=== PATIENT | male | born 1975 | race Caucasian/White ===

== ENCOUNTER 2016-07-10 10:27 | Emergency (ER) | payer BC, OTHER ==
[~2016-07-10] VITALS: Ht 175.3 cm; Wt 90.7 kg
[2016-07-10 10:38] VITALS: TEMP 37; Ht 175.3 cm; Wt 90.7 kg
[2016-07-10 10:41] VITALS: O2SAT 95
[2016-07-10 11:07] LABS: BASO % 0.5 %; BASO ABS # 0.03 K/uL (0-0.2); COMPLETE YES; EOS % 5.5 %; HEMATOCRIT 47.8 % (42-52); IG% 0.5 %; LYMPH % 30.5 %; MEAN CORPUSCULAR HGB CONC 34.9 g/dl (32-36); MEAN PLATELET VOLUME 10.2 fL (7.4-10.4); MONO % 6.4 %; NEUT % 56.6 %; PLATELET COUNT 289 K/uL (130-400); RED BLOOD COUNT 5.56 M/uL (4.7-6.1); WHITE BLOOD COUNT 6.23 K/uL (4.8-10.8)
[2016-07-10] MEDS ORDERED: ASPIRIN 81 MG CHEW ONE (11:10)
[2016-07-10] MEDS ORDERED: ASPIRIN 324 MG CHEW PO STA (11:13)
[2016-07-10 11:15] LABS: URINE APPEARANCE CLOUDY (CLEAR); URINE BILIRUBIN NEG (NEG); URINE COLOR YELLOW; URINE EPITHELIAL CELL AUTO 0-5 /lpf (0-5); URINE NITRITE NEG (NEG); URINE PH 6.5 (4.5-7.5); URINE SPECIFIC GRAVITY 1.007 (1.000-1.030); UROBILINOGEN NEG (NEG)
[2016-07-10 11:16] LABS: BLOOD UREA NITROGEN 15 mg/dl (7-18); BUN/CREATININE RATIO 13.3 (10-20); CALCIUM 8.9 mg/dl (8.5-10.1); CARBON DIOXIDE 30 mmol/L (21-32); CHLORIDE 106 mmol/L (98-107); GLUCOSE 81 mg/dl (70-99); POTASSIUM 4.1 mmol/L (3.5-5.1); SODIUM 141 mmol/L (136-145)
[2016-07-10 11:17] LABS: MANUAL MICROSCOPIC REQUIRED? NO; REVIEW REQ? NO
[2016-07-10 11:26] LABS: CKMB/CK RATIO 0.6 (0-3.0)
--- NOTE | 2016-07-10 11:44 | DIAGNOSTIC IMAGING REPORT ---
TWO VIEW CHEST CLINICAL HISTORY: Left-sided chest pain. FINDINGS: PA and lateral chest radiographs are obtained. No prior studies are available for comparison at the time of dictation. The cardiomediastinal silhouette is unremarkable. The lungs and pleural spaces are clear. There is no pneumothorax. The bony thorax appears intact. IMPRESSION: No active disease in the chest. Electronically signed by: Aydin Ferguson M.D. 07/10/2016 11:43 AM Dictated Date/Time: 07/10/2016 11:42 AM
[2016-07-10 13:05] VITALS: BP 113/74; PULSE 73; O2SAT 99
--- NOTE | 2016-07-13 17:37 | EMERGENCY ROOM VISIT NOTE ---
History First contact with patient: 10:37 Chief Complaint: CHEST PAIN Stated Complaint: CHEST DISCOMFORT, NAUSEA, LIGHTHEADED, SHAKING Nursing Triage Summary: pt c/o chest pain started last night and describes as tightness does not radiate. denies any n/v pt reports feeling sob chest feels like a ball in it last night pain was more sharp 2 weeks ago flew to [place] for a weekend History of Present Illness The patient is a 40 year old white male who presents to the Emergency Room with complaints of chest pain that developed last night. He points to his left anterior chest wall. It is not doing anything active. He states he was sitting on a couch when it first occurred. He describes it as a tightness and sharp. This morning, he was also sitting on the couch and had a second bout of tightness in his chest. He states he also felt an abrupt onset of shortness of breath. It resolved upon arrival at the ED. He currently denies any tightness or heaviness in his chest. He does have a focal area that remains sharp and uncomfortable. It did not radiate to his jaw or his arm. No prior history of similar discomfort. He states his father suddenly 2 months ago. He is not sure if he is anxious about this sudden . Pain is currently 1/10. No fevers, chills, sweats, nausea, vomiting, or abdominal pain. No history of asthma. He denies any calf pain. No recent long trips or air travel. His accompanies him today. Review of Systems REVIEW OF SYSTEM: HEENT: No dizziness, visual problems, hearing loss, or tinnitus. There is no difficulty swallowing and no oral lesions are present. PULMONARY: No cough, shortness of breath, sputum production or hemoptysis. CARDIOVASCULAR: No chest pain, palpitations, shortness of breath or peripheral edema. GASTROINTESTINAL: No diarrhea, constipation, nausea, vomiting, or abdominal pain. GENITOURINARY: No dysuria, frequency, urgency or nocturia. NEUROLOGIC: No weakness, muscle tenderness, epilepsy or history of neurological problems. MUSCULOSKELETAL: No history of joint tenderness/swelling. No history of arthritis or arthralgias. SKIN: No rashes or lesions. PSYCHIATRIC: No history of depression or mental illness. ENDOCRINE: No history of diabetes, thyroid disorders, or abnormal hair growth. Past Medical/Surgical History Previous surgeries: Serena tooth extraction Medical history: History of bronchitis and reflux Family History Father is from coronary thrombus. Also history of skin cancer, kidney stones, osteoarthritis, and GERD Social History Smoking Status: Never Smoker Smokeless Tobacco Use: No Alcohol Use: occasionally Drug Use: none Marital Status: Housing Status: lives with family Occupation Status: employed Current/Historical Medications No Active Prescriptions or Reported Meds Allergies Coded Allergies: No Known Allergies (Unverified , 07/10/16) Physical Exam Vital Signs Date Time Temp Pulse Resp B/P Pulse Ox O2 Delivery O2 Flow Rate FiO2 07/10/16 13:05 73 18 113/74 99 07/10/16 12:30 62 98/73 97 Room Air 07/10/16 11:35 75 07/10/16 10:41 95 Room Air 07/10/16 10:38 37.0 67 18 129/86 97 Room Air Pain Rating (0-10): 0 Physical Exam Gen.: Well-developed, well-nourished, young white male, in no acute distress. Somewhat anxious. He does become tearful when talking about his father. Alert and oriented. Skin:Warm and dry with good turgor. No rashes or lesions. No ecchymosis or erythema. The patient is not diaphoretic. No abrasions. HEENT : Normocephalic atraumatic. Eyes PERRLA, EOMI. No conjunctiva or scleral injection. Ears TMs intact bilaterally with good light reflexes. No erythema or bulging. No hemotympanum. Canals are patent. Nares patent bilaterally without turbinate enlargement. No significant drainage. No epistaxis. Oropharynx without erythema or exudate. Uvula midline, oral mucosa moist. No lesions present. Heart: Heart RRR. No MGR. Peripheral pulses are 2+. Lungs: Lungs are clear to auscultation. No crackles rhonchi or wheezing. Good air movement. The patient is able to take a deep breath. Abdomen: Abdomen was inspected, auscultated, and palpated. Bowel sounds present x 4. Soft, nontender to palpation. No hepato-splenomegaly. No masses noted. Musculoskeletal: Gross motor function of the upper and lower extremities is intact and unremarkable. There is focal discomfort with palpation over the left pectoral muscle. He describes a sharp pain as superficial, but states that the tightness was deeper. No palpable defect in the pectoral muscle. It is not reproduced with bench press or pectoral fly type activity. Neurologic: Gross sensation is intact across the upper and lower extremity's by soft touch. Medical Decision & Procedures ER Provider Diagnostic Interpretation: Initial EKG obtained today shows a normal sinus rhythm with a rate of 74. No acute ST or T-wave changes are present. Repeat EKG obtained while the patient was having some increased tightness shows a normal sinus rhythm with a rate of 78. No changes were noted. No acute ST or T-wave abnormalities. These were reviewed with Dr. Montero. Chest x-ray obtained today was read by radiology as unremarkable. No active disease in the chest. Laboratory Results 07/10/16 10:45 Red Blood Count 5.56, Mean Corpuscular Volume 86.0, Mean Corpuscular Hemoglobin 30.0, Mean Corpuscular Hemoglobin Concent 34.9, Mean Platelet Volume 10.2, Neutrophils (%) (Auto) 56.6, Lymphocytes (%) (Auto) 30.5, Monocytes (%) (Auto) 6.4, Eosinophils (%) (Auto) 5.5, Basophils (%) (Auto) 0.5, Neutrophils # (Auto) 3.53, Lymphocytes # (Auto) 1.90, Monocytes # (Auto) 0.40, Eosinophils # (Auto) 0.34, Basophils # (Auto) 0.03 07/10/16 10:45 Test 07/10/16 00:00 07/10/16 10:45 Urine Color YELLOW Urine Appearance CLOUDY (CLEAR) Urine pH 6.5 (4.5-7.5) Urine Specific [place] 1.007 (1.000-1.030) Urine Protein NEG (NEG) Urine Glucose (UA) NEG (NEG) Urine Ketones NEG (NEG) Urine Occult Blood NEG (NEG) Urine Nitrite NEG (NEG) Urine Bilirubin NEG (NEG) Urine Urobilinogen NEG (NEG) Urine Leukocyte Esterase NEG (NEG) Urine WBC (Auto) 1-5 /hpf (0-5) Urine RBC (Auto) 0-4 /hpf (0-4) Urine Hyaline Casts (Auto) 0 /lpf (0-5) Urine Epithelial Cells (Auto) 0-5 /lpf (0-5) Urine Bacteria (Auto) NEG (NEG) White Blood Count 6.23 K/uL (4.8-10.8) Red Blood Count 5.56 M/uL (4.7-6.1) Hemoglobin 16.7 g/dL (14.0-18.0) Hematocrit 47.8 % (42-52) Mean Corpuscular Volume 86.0 fL (80-100) Mean Corpuscular Hemoglobin 30.0 pg (25-34) Mean Corpuscular Hemoglobin Concent 34.9 g/dl (32-36) Platelet Count 289 K/uL (130-400) Mean Platelet Volume 10.2 fL (7.4-10.4) Neutrophils (%) (Auto) 56.6 % Lymphocytes (%) (Auto) 30.5 % Monocytes (%) (Auto) 6.4 % Eosinophils (%) (Auto) 5.5 % Basophils (%) (Auto) 0.5 % Neutrophils # (Auto) 3.53 K/uL (1.4-6.5) Lymphocytes # (Auto) 1.90 K/uL (1.2-3.4) Monocytes # (Auto) 0.40 K/uL (0.11-0.59) Eosinophils # (Auto) 0.34 K/uL (0-0.5) Basophils # (Auto) 0.03 K/uL (0-0.2) RDW Standard Deviation 39.3 fL (36.4-46.3) RDW Coefficient of Variation 12.4 % (11.5-14.5) Immature Granulocyte % (Auto) 0.5 % Immature Granulocyte # (Auto) 0.03 K/uL (0.00-0.02) D-Dimer 390 ug/L FEU (0-500) Anion Gap 5.0 mmol/L (3-11) Est Creatinine Clear Calc Drug Dose 101.4 ml/min Estimated GFR () 98.2 Estimated GFR (Non- 84.7 BUN/Creatinine Ratio 13.3 (10-20) Calcium Level 8.9 mg/dl (8.5-10.1) Total Creatine Kinase 97 U/L (39-308) Creatine Kinase MB 0.6 ng/ml (0.5-3.6) Creatine Kinase MB Ratio 0.6 (0-3.0) Troponin I < 0.015 ng/ml (0-0.045) Thyroid Stimulating Hormone (TSH) 2.460 uIu/ml (0.300-4.500) CBC, chem panel, d-dimer, CK/CK-MB, troponin, UA and TSH were obtained today. They are all unremarkable. Medications Administered Medications (Trade) Dose Ordered Sig/Lobo Route Start Time Stop Time Status Last Admin Dose Admin Aspirin (Aspirin Chew) 324 mg STK-MED ONCE .ROUTE 07/10/16 11:10 07/10/16 11:14 DC 07/10/16 11:21 324 MG ED Course Patient was educated regarding today's findings. Conservative care measures were discussed. IV was established. Labs were obtained. Chest x-ray was obtained along with an initial EKG. Patient developed increasing tightness in his chest while in the ED. New EKG was obtained. This was unremarkable. Dr. Montero was also in the room while the second EKG was performed. Patient was reassured that no abnormalities were noted. He should still follow-up with cardiology for evaluation. He may require stress testing. He will call on Tuesday for follow-up. Avoid any vigorous physical activity until reevaluated. Return to the ED for any acute changes or worsening of symptoms. Medical Decision Possibility of ACS, acute MO, PE, pleurisy, pneumonia, anxiety, reflux, and muscle strain were considered among others. Impression Primary Impression: Non-cardiac chest pain Departure Information Dispostion Home / Self-Care Condition FAIR Prescriptions No Active Prescriptions or Reported Meds Referrals Uri Montaño M.D. (PCP) Uri Skinner M.D. Forms HOME CARE DOCUMENTATION FORM, IMPORTANT VISIT INFORMATION Patient Instructions [facility] Additional Instructions Follow-up with [facility] cardiology-call Tuesday for follow-up Avoid any vigorous physical activity until reevaluated Return to the ED for any acute changes or worsening of symptoms
== END 2016-07-10 13:07 | disposition home or self-care (01) ==
LOC: C.EDB 10:31 → C.EDA 13:07
DX: R07.89 Other chest pain (principal)